=== PATIENT | male | born 1950 | race Caucasian/White ===

== ENCOUNTER 2017-06-10 06:57 | Day surgery (SDC) | payer MEDICARE ==
[~2017-06-10 06:57] MED LIST: AMBI12.5 PO; ASPI81 PO; CADU10TA PO; CARV80 PO; CLOP75 PO; EZET10 PO; FENO50TA PO; GLUCTAB PO; IMDU60TA PO; ISOS30 PO; LANO0.2510 PO; NIAC500 PO; NITR0.4S SL; RAMI5CAP7 PO; TAB-TAB PO
[2017-06-10] MEDS ORDERED: OMEP20TA93 PO (07:57)
[2017-06-10] MEDS ORDERED: RAMI2.5C PO (07:57)
[2017-06-10] MEDS ORDERED: PRAD150C PO (07:57)
[2017-06-10] MEDS ORDERED: NITR0.4S SL (07:57)
[2017-06-10] MEDS ORDERED: METF500T PO (07:57)
[2017-06-10] MEDS ORDERED: CARV12.52 PO (07:57)
[2017-06-10] MEDS ORDERED: ASPI-516 CHEW (07:57)
[2017-06-10] MEDS ORDERED: ATOR80TA45 PO (07:57)
[2017-06-10] MEDS ORDERED: PROPOFOL 200 MG/20 ML AMP ONE (08:22)
[2017-06-10] MEDS ORDERED: METOPROLOL TARTRATE 25 MG TAB PO PRN (08:30)
[2017-06-10] MEDS ORDERED: SODIUM CHLORID 0.9% 500 ML IV PRN (08:30)
[2017-06-10] MEDS ORDERED: POVIDONE IODINE 5% (ANTISEPSIS KIT) 4 APPLICATIONS EACH NARE PRN (08:30)
[2017-06-10] MEDS ORDERED: CHLORHEXIDINE GLUCONATE 2 % 1 PACK (2 CLOTHS) TOPICAL PRN (08:30)
[2017-06-10] MEDS ORDERED: INSULIN HUMAN REGULAR 1,000 UNITS/10 ML VIAL SQ PRN (08:30)
[2017-06-10] MEDS ORDERED: LACTATED RINGER'S 1000 ML IV PRN (08:30)
--- NOTE | 2017-06-10 17:49 | EKG ---
Date Performed: 06/10/2017 Time Performed: 07:31:26 PTAGE: 66 years EKG: Probable atrial fibrillation with frequent PVCs. Demand ventricular pacing is present. Left axis deviation RBBB with left anterior fascicular block Cannot rule out septal infarct - age undeter mined Possible left ventricular hypertrophy Lateral ST-T changes are probably due to ventricular hype rtrophy Abnormal ECG PREVIOUS TRACING : 12/07/2012 10.21 DOCTOR: Jorge Ojeda Interpretating Date/Time 06/10/2017 17:47:00
== END 2017-06-10 09:26 | disposition home or self-care (01) ==
LOC: HDIC 06:57 → HDOC 06:57
PROVIDERS: ATTEND Internal Medicine Cardiovascular Disease
DX: I48.92 Unspecified atrial flutter (principal); I25.10 Atherosclerotic heart disease of native coronary artery without angina pectoris; I25.5 Ischemic cardiomyopathy; Z95.1 Presence of aortocoronary bypass graft
CPT/HCPCS: 92960; 93005

== ENCOUNTER 2017-07-08 07:01 | Day surgery (SDC) | payer MEDICARE ==
[~2017-07-08 07:01] MED LIST changes: -AMBI12.5 PO; +ASPI-516 CHEW; -ASPI81 PO; +ATOR80TA45 PO; -CADU10TA PO; +CARV12.52 PO; -CARV80 PO; -CLOP75 PO; -EZET10 PO; -FENO50TA PO; -GLUCTAB PO; -IMDU60TA PO; -ISOS30 PO; -LANO0.2510 PO; +METF500T PO; -NIAC500 PO; +OMEP20TA93 PO; +PRAD150C PO; +RAMI2.5C PO; -RAMI5CAP7 PO; -TAB-TAB PO
--- NOTE | 2017-07-08 08:31 | MA ---
cc: ARTEMIO FLOREZ MD DATE 07/08/2017 PROCEDURE Cardioversion. DETAILS OF PROCEDURE The patient was anesthetized with Diprivan as per anesthesiology. A countershock was done under sync with 100 joules converting the patient from atrial fibrillation to sinus rhythm. No complications were present. MD ANNA Liu/GARY /8:16 AM /8:25 AM
[2017-07-08] MEDS ORDERED: LACTATED RINGER'S 1000 ML IV PRN (08:45)
[2017-07-08] MEDS ORDERED: METOPROLOL TARTRATE 25 MG TAB PO PRN (08:45)
[2017-07-08] MEDS ORDERED: CHLORHEXIDINE GLUCONATE 2 % 1 PACK (2 CLOTHS) TOPICAL PRN (08:45)
[2017-07-08] MEDS ORDERED: POVIDONE IODINE 5% (ANTISEPSIS KIT) 4 APPLICATIONS EACH NARE PRN (08:45)
[2017-07-08] MEDS ORDERED: SODIUM CHLORID 0.9% 500 ML IV PRN (08:45)
--- NOTE | 2017-07-09 22:59 | EKG ---
Date Performed: 07/08/2017 Time Performed: 08:36:02 PTAGE: 67 years EKG: PACED RHYTHM Abnormal ECG PREVIOUS TRACING : 07/08/2017 08.07 Since the prior tracing, there has been no significant loomis DOCTOR: Jennifer Beckwith Interpretating Date/Time 07/09/2017 22:57:45
--- NOTE | 2017-07-09 23:00 | EKG ---
Date Performed: 07/08/2017 Time Performed: 08:07:12 PTAGE: 67 years EKG: Atrial flutter with frequent PVCs or aberrant ventricular conduction. V PACING Abnormal ECG PREVIOUS TRACING : 06/10/2017 07.31 Since the prior tracing, there has been no significant loomis DOCTOR: Jennifer Beckwith Interpretating Date/Time 07/09/2017 22:59:58
== END 2017-07-08 09:10 | disposition home or self-care (01) ==
LOC: HDOC 07:01 → HDIC 07:02 → HDOC 09:10
PROVIDERS: ATTEND Internal Medicine Cardiovascular Disease
DX: I48.91 Unspecified atrial fibrillation (principal); I25.10 Atherosclerotic heart disease of native coronary artery without angina pectoris; I10 Essential (primary) hypertension; E78.5 Hyperlipidemia, unspecified; Z95.1 Presence of aortocoronary bypass graft
CPT/HCPCS: 92960; 93005